=== PATIENT | male | born 1950 | race Caucasian/White ===

== ENCOUNTER → 2018-04-11 | Outpatient (CLI) | payer MEDICARE | END | disposition home or self-care (01) | LOC: PCVCCLINIC 14:44 | PROVIDERS: ATTEND Internal Medicine | DX: I11.0 Hypertensive heart disease with heart failure (principal); I50.32 Chronic diastolic (congestive) heart failure; R94.31 Abnormal electrocardiogram [ECG] [EKG]; E78.5 Hyperlipidemia, unspecified | CPT/HCPCS: 36415; 80061; 93005; G0463 ==

== ENCOUNTER → 2018-05-16 | Outpatient (CLI) | payer MEDICARE ==
--- NOTE | 2018-05-16 15:02 | PCVCIMAG ---
APPROVED REPORT Study performed: 05/16/2018 13:58:01 Exam: Stress Echocardiogram Indication: abnormal ECG, dyspnea on exertion Patient Location: Echo lab Stress Nurse: Orly Huffman RN Status: routine Ht: 6 ft 0 in HR: 96 bpm BP: 148/94 mmHg Rhythm: NSR with left anterior hemiblock Procedure The patient underwent an Exercise Stress Test using the Jeevan Protocol. Blood pressure, heart rate, and EKG were monitored. An Echocardiogram was performed by cardiac monitor technician in four stages in quad fashion. At peak stress, four selected images were obtained and placed side by side with resting images for comparison. Stress Test Details Stress Test: Exercise stress testing was performed using a Jeevan protocol. HR Resting HR: 96 bpmMax Heart Rate (APMHR): 155 bpm Max HR Achieved: 164 bpmTarget HR (85% APMHR): 131 bpm % of APMHR: 105 Recovery HR: 113 bpm HR response to stress: Normal HR response to stress BP Resting BP: 148/94 mmHg Max BP: 196/82 mmHg Recovery BP: 168/78 mmHg BP response to stress: Normal blood pressure response to stress. ECG Resting ECG: NSR with left anterior hemiblock Stress ECG: NSR with left anterior hemiblock ST Change: Normal Maximum ST Deviation: 0 mm Arrhythmia: None Recovery ECG: NSR with left anterior hemiblock Recovery ST Change: Normal Recovery ST Deviation: 0 mm Recovery Arrhythmia: None Clinical Reason for Termination: Maximal effort, Dyspnea Stress Symptoms: Dyspnea Exercise duration: 7 min sec Highest Stage Achieved: Stage 3: 3.4 mph at 14% grade. Exercise capacity: 10.1 METs Overall Exercise Capacity for Age: Average Scale: Sedentary Angina Score: None Stress ECG Conclusion ECG: Non-ischemic Clinical: Non-ischemic Carranza Treadmill Score is 7.0 which is Low risk. Pre-Stress Echo The resting Echocardiogram showed normal left ventricular contractility with an estimated Ejection Fraction of about >55%. Normal wall motion in all segments on baseline images. Post-Stress Echo The stress Echocardiogram showed normal left ventricular contractility with an estimated Ejection Fraction of about 65%. Normal augmentation of wall motion in all segments on post stress images. Clinical No clinical or ECG evidence for ischemia. Conclusion Clinical Response: Non-ischemic Exercise Capacity: Average Stress ECG Response: Non-ischemic Stress Echo Images: Non-ischemic The left ventricle is normal in size and wall thickness in both the rest and stress images. Normal stress echocardiogram with maximal exercise stress. Other Information Study Quality: Adequate <Conclusion> The left ventricle is normal in size and wall thickness in both the rest and stress images. Normal stress echocardiogram with maximal exercise stress.
== END | disposition home or self-care (01) ==
LOC: PCVCIMAG 13:00
PROVIDERS: ATTEND Internal Medicine
DX: R94.31 Abnormal electrocardiogram [ECG] [EKG] (principal); R06.09 Other forms of dyspnea; I11.0 Hypertensive heart disease with heart failure; I50.32 Chronic diastolic (congestive) heart failure
CPT/HCPCS: 93325; 93351

== ENCOUNTER → 2018-11-14 | Outpatient (CLI) | payer MEDICARE | END | disposition home or self-care (01) | LOC: PCVCCLINIC 14:10 | PROVIDERS: ATTEND Internal Medicine | DX: I11.0 Hypertensive heart disease with heart failure (principal); I50.32 Chronic diastolic (congestive) heart failure; E78.5 Hyperlipidemia, unspecified; R94.31 Abnormal electrocardiogram [ECG] [EKG] | CPT/HCPCS: 36415; 80061; 93005; G0463 ==